=== PATIENT | male | born 1965 | race Hispanic/Latino ===

== ENCOUNTER 2016-07-16 21:36 | Emergency (ER) | payer OTHER ==
[~2016-07-16] VITALS: Ht 170.2 cm; Wt 107.5 kg
--- NOTE | 2016-07-16 22:07 | ED MVC/FALL/TRAUMA COMPLAINT ---
History of Present Illness General Chief Complaint: Fall Stated Complaint: PT FELL AT WORK ,HURT BACK OF THE NECK AND SHOULDE Source: patient Exam Limitations: no limitations Vital Signs & Intake/Output Vital Signs & Intake/Output Vital Signs Date Time Temp Pulse Resp B/P B/P Pulse O2 O2 Flow FiO2 Mean Ox Delivery Rate 07/17 0005 96.9 78 20 100/56 98 07/16 2241 Room Air 07/16 2152 98.8 71 18 116/73 96 Room Air ED Intake and Output 07/17 0000 07/16 1200 Intake Total Output Total Balance Patient 237 lb Weight Weight Reported by Patient Measurement Method Allergies Coded Allergies: NO KNOWN ALLERGIES (12/18/11) Reconcile Medications Ibuprofen 800 MG TABLET 1 TAB PO TID pain Triage Note: PT TO ED C/O PAIN BETWEEN SHOULDER BVLADES AND SIDES OF NECK S/P BEING PUSHED OFF "THE TOP OF A TRAILER ONTO ASPHALT" BY A BRAYDEN WHILE WORKING YESTERDAY AT 1730. WENT TO WORK TODAY, PAIN HAS GOTTEN WORSE. DENIES NUMBENESS/TINGELING TO EXTREMETIES. DENIES URINARY INCONTINANCE Triage Nurses Notes Reviewed? yes Onset: Abrupt Duration: occured yesterday Timing: single episode today Severity: mild, moderate Injuries/Fall Location: head, neck, upper back Method of Injury: fall Loss of Consciousness: no loss of consciousness Modifying Factors: Improves With: rest. Worsens With: movement, palpation. Associated Symptoms: upper back/neck/headache pain HPI: 51 yo gentleman presents after a fall at work. He notes that he was atop a tree and fell to the ground, landing on his upper back, neck, and back of his head. He did not lose consciousness. The event occured yesterday. He presents with continued pain and discomfort. No dizziness. Past History Travel History Traveled to [place] past 21 day No Medical History Any Pertinent Medical History? see below for history Respiratory: asthma Musculoskeletal: HX FX ARM/WRIST/TOES/FEMU Cancer(s): prostate cancer Tetanus Vaccine: 05/23/14 Surgical History Surgical History: none Psychosocial History What is your primary language Telugu Tobacco Use: Quit >30 days ago ETOH Use: occasional use Illicit Drug Use: denies illicit drug use Family History Hx Contributory? No Review of Systems Review of Systems Constitutional: Reports: no symptoms. Eyes: Reports: no symptoms. Ears, Nose, Throat, Mouth: Reports: no symptoms. Respiratory: Reports: no symptoms. Cardiovascular: Reports: no symptoms. Gastrointestinal/Abdominal: Reports: no symptoms. Genitourinary: Reports: no symptoms. Musculoskeletal: Reports: no symptoms. Skin: Reports: no symptoms. Neurological/Psychological: Reports: no symptoms. All Other Systems: Reviewed and Negative Physical Exam Physical Exam General Appearance: well developed/nourished, mild distress Head: atraumatic, normal appearance Eyes: Bilateral: normal appearance, PERRL, EOMI. Ears, Nose, Throat, Mouth: hearing grossly normal, moist mucous membrane Neck: normal inspection, supple, mild diffuse paracervical muscle spasm to palpation. Respiratory: normal breath sounds, chest non-tender Cardiovascular: regular rate/rhythm Gastrointestinal: normal bowel sounds, soft, non-tender, no organomegaly Back: normal inspection, normal range of motion Extremities: normal range of motion Neurologic/Psych: no motor/sensory deficits, awake, alert, oriented x 3 Skin: intact, normal color, warm/dry Core Measures ACS in differential dx? No Severe Sepsis Present: No Septic Shock Present: No Progress Differential Diagnosis: C/T/L spine injury, ICH Plan of Care: Orders Procedure Date/time Status CT THOR SPINE WO IV CONTRAST 07/[address] HEAD WO IV CONTRAST 07/[address] CERV SPINE WO IV CONTRAST 07/16 2206 Active Diagnostic Imaging: Viewed by Me: CT Scan. Discussed w/RAD: CT Scan. Radiology Impression: head/neck/thoracic spine.... mild compression fx t12, likely chronic, otherwise benign... full report below. Comments: PATIENT: ELIU EDWARDS PRESENT AGE: 51 PATIENT ACCOUNT NO: [id number] : 66 LOCATION: [facility] ORDERING PHYSICIAN: DEJUAN HI MD SERVICE DATE: 07/16/16 EXAM TYPE: CAT - CT CERV SPINE WO IV CONTRAST; CT HEAD WO IV CONTRAST; CT THOR SPINE WO IV CONTRAST EXAMINATION: CT HEAD WITHOUT CONTRAST. CT CERVICAL SPINE WITHOUT CONTRAST. CT THORACIC SPINE WITHOUT CONTRAST. CLINICAL INFORMATION: Status post fall. Trauma. Pain. COMPARISON: None TECHNIQUE: Multidetector volumetric CT imaging is obtained through the head, cervical spine and thoracic spine without intravenous contrast administration. Postprocessing is performed at a dedicated workstation. Multiplanar reformatted images are submitted. DLP: 1072.02 mGy-cm. FINDINGS: CT HEAD: No evidence of acute intracranial hemorrhage, midline shift or mass effect. Ledesma to white matter differentiation is well preserved. No evidence of acute or infarction. No extra-axial fluid collection. The osseous calvarium is intact. The visualized paranasal sinuses and mastoid air cells are well-aerated. The calvarial soft tissues are unremarkable. CERVICAL SPINE: The vertebral body heights and alignment are maintained. Intervertebral disc spaces are well preserved. The posterior elements are intact and in normal alignment. The atlantoaxial and atlantooccipital alignments are normal. Mild degenerative changes are noted at the atlantoaxial alignment. No evidence of prevertebral soft tissue swelling. Paraspinous soft tissues are unremarkable. The airway is widely patent. The thyroid gland is unremarkable. Visualized lung apices are clear. THORACIC SPINE: Minimal anterior wedge compression of T12 body is likely chronic. The vertebral body heights and alignment are otherwise maintained. Intervertebral disc spaces are well preserved. Anterior fusion osteophytes are noted at T9-T10 and T10-T11. No suspicious lytic or blastic osseous lesions are seen. The paraspinous soft tissues are unremarkable. A punctate nonobstructing calculus is noted in the upper to mid right kidney measuring 0.2 cm. The visualized lungs are clear. IMPRESSION: 1. No acute intracranial abnormality. 2. No evidence of acute fracture or subluxation in the cervical spine. 3. Mild anterior wedge compression of T12 is likely chronic. Otherwise no evidence of acute fracture or subluxation in the thoracic spine. Mild degenerative changes in the lower thoracic spine. 4. A punctate nonobstructing calculus in the upper to mid right kidney. DICTATED BY: STEVE BURNS MD DATE/TIME DICTATED:07/16/162242 DAIRY PROCESSING EQUIPMENT OPERATOR:ANÍBAL DATE/TIME TRANSCRIBED:07/16/162242 CONFIDENTIAL, DO NOT COPY WITHOUT APPROPRIATE AUTHORIZATION. <Electronically signed in Other Vendor System> SIGNED BY: STEVE BURNS MD 07/16/16 2199 Departure Departure Disposition: HOME OR SELF CARE Condition: Stable Clinical Impression Primary Impression: Head injury Secondary Impressions: Compression fracture, Neck pain Referrals: ADOLFO DIANA,RADHA Zacarias Departure Forms: [employer] Employee Industrial Accident General Discharge Information Prescriptions: Current Visit Scripts Ibuprofen 1 TAB PO TID #30 TAB Comments 07/16/16, 23:49pm... pt feeling well in ED... scans reveal likely chronic t12 compression fx, mild... no acute fracture noted.
--- NOTE | 2016-07-16 23:17 | CT SCAN REPORT ---
EXAMINATION: CT HEAD WITHOUT CONTRAST. CT CERVICAL SPINE WITHOUT CONTRAST. CT THORACIC SPINE WITHOUT CONTRAST. CLINICAL INFORMATION: Status post fall. Trauma. Pain. COMPARISON: None TECHNIQUE: Multidetector volumetric CT imaging is obtained through the head, cervical spine and thoracic spine without intravenous contrast administration. Postprocessing is performed at a dedicated workstation. Multiplanar reformatted images are submitted. DLP: 1072.02 mGy-cm. FINDINGS: CT HEAD: No evidence of acute intracranial hemorrhage, midline shift or mass effect. Ledesma to white matter differentiation is well preserved. No evidence of acute or infarction. No extra-axial fluid collection. The osseous calvarium is intact. The visualized paranasal sinuses and mastoid air cells are well-aerated. The calvarial soft tissues are unremarkable. CERVICAL SPINE: The vertebral body heights and alignment are maintained. Intervertebral disc spaces are well preserved. The posterior elements are intact and in normal alignment. The atlantoaxial and atlantooccipital alignments are normal. Mild degenerative changes are noted at the atlantoaxial alignment. No evidence of prevertebral soft tissue swelling. Paraspinous soft tissues are unremarkable. The airway is widely patent. The thyroid gland is unremarkable. Visualized lung apices are clear. THORACIC SPINE: Minimal anterior wedge compression of T12 body is likely chronic. The vertebral body heights and alignment are otherwise maintained. Intervertebral disc spaces are well preserved. Anterior fusion osteophytes are noted at T9-T10 and T10-T11. No suspicious lytic or blastic osseous lesions are seen. The paraspinous soft tissues are unremarkable. A punctate nonobstructing calculus is noted in the upper to mid right kidney measuring 0.2 cm. The visualized lungs are clear. IMPRESSION: 1. No acute intracranial abnormality. 2. No evidence of acute fracture or subluxation in the cervical spine. 3. Mild anterior wedge compression of T12 is likely chronic. Otherwise no evidence of acute fracture or subluxation in the thoracic spine. Mild degenerative changes in the lower thoracic spine. 4. A punctate nonobstructing calculus in the upper to mid right kidney.
[2016-07-16] MEDS ORDERED: IBUPROFEN800 M1 PO (23:49)
[2016-07-17 00:05] VITALS: BP 100/56
== END 2016-07-17 00:07 ==
LOC: ERH 21:36
DX: S22.080A Wedge compression fracture of T11-T12 vertebra, initial encounter for closed fracture (principal); S09.90XA Unspecified injury of head, initial encounter; W14.XXXA Fall from tree, initial encounter; Y92.9 Unspecified place or not applicable; Y93.9 Activity, unspecified